=== PATIENT | female | born 1995 | race Caucasian/White ===

== ENCOUNTER 2017-06-10 12:19 | Emergency (ER) | payer OTHER ==
[2017-06-10] MEDS ORDERED: SODIUM CHLORIDE 0.9% 500 ML IV STA (12:55)
--- NOTE | 2017-06-10 13:02 | ED ---
General Adult HPI - General Chief complaint: Overdose Stated complaint: mental health Time Seen by Provider: 06/10/17 12:51 Source: patient, police, EMS, RN notes reviewed Mode of arrival: EMS Limitations: no limitations - History of Present Illness Initial comments: Patient is a pleasant 21-year-old female presenting to the emergency department with depression and overdose. Patient states prior to arrival she took exactly 18 simply sleep pills. Patient denies taking Tylenol. Patient denies taking any other medications. Patient admits to feeling depressed. No homicidal thoughts. Patient does have previous suicide attempt. No physical complaints. No hallucinations. Occasional alcohol use, none today. No street drug use. - Related Data Home Medications Medication Instructions Recorded Confirmed Ibuprofen [Motrin] 400 mg PO BID PRN 06/10/17 06/10/17 Allergies Allergy/AdvReac Type Severity Reaction Status Date / Time amoxicillin Allergy Rash/Hives Verified 06/10/17 13:29 Review of Systems ROS Statement: Those systems with pertinent positive or pertinent negative responses have been documented in the HPI. ROS Other: All systems not noted in ROS Statement are negative. Constitutional: Denies: fever Eyes: Denies: eye pain ENT: Denies: ear pain Respiratory: Denies: cough Cardiovascular: Denies: chest pain Endocrine: Denies: fatigue Gastrointestinal: Denies: abdominal pain Genitourinary: Denies: dysuria Musculoskeletal: Denies: back pain Skin: Denies: rash Neurological: Denies: weakness Psychiatric: Reports: depression Past Medical History Past Medical History: No Reported History History of Any Multi-Drug Resistant Organisms: None Reported Past Surgical History: Cholecystectomy Past Anesthesia/Blood Transfusion Reactions: No Reported Reaction Past Psychological History: No Psychological Hx Reported Smoking Status: Current every day smoker Past Alcohol Use History: Occasional Past Drug Use History: None Reported General Exam Limitations: no limitations General appearance: alert, in no apparent distress Head exam: Present: atraumatic Eye exam: Present: normal appearance, PERRL ENT exam: Present: normal oropharynx Neck exam: Present: normal inspection. Absent: meningismus Respiratory exam: Present: normal lung sounds bilaterally Cardiovascular Exam: Present: regular rate, normal rhythm GI/Abdominal exam: Present: soft. Absent: tenderness Extremities exam: Present: normal inspection Neurological exam: Present: alert Psychiatric exam: Present: flat affect Skin exam: Present: normal color Course Vital Signs 06/10/17 06/10/17 06/10/17 12:22 12:37 12:46 Temperature 100.2 F H Pulse Rate 115 H 112 H Pulse Rate [ 110 H Credit Collection Associate ] Respiratory 16 18 Rate Blood Pressure 135/85 O2 Sat by Pulse 99 100 Oximetry 06/10/17 06/10/17 06/10/17 13:22 14:21 15:30 Temperature 100.0 F H Pulse Rate 94 Pulse Rate [ Credit Collection Associate ] Respiratory 16 16 16 Rate Blood Pressure 112/67 O2 Sat by Pulse 98 Oximetry EKG Findings - EKG Comments: EKG Findings:: Normal sinus rhythm 99. [place] 138. QRS 82. QT 368. QTC 472. Normal axis. Normal QRS. Normal ST-T. Medical Decision Making - Medical Decision Making Patient was seen by mental health services who does recommend discharge and close follow-up. They have been in touch with mobile crisis who will follow up with patient today and tomorrow and every day until she has established with a therapist. Patient denies suicidal ideation at this time. Patient is comfortable with plan with discharge. Patient does contract for safety. Patient requests a note for work for [employer]. - Lab Data Result diagrams: 06/10/17 12:30 06/10/17 12:30 Lab Results 06/10/17 06/10/17 06/10/17 Range/Units 12:30 12:30 13:45 WBC 5.3 (3.8-10.6) k/uL RBC 4.18 (3.80-5.40) m/uL Hgb 13.1 (11.4-16.0) gm/dL Hct 39.7 (34.0-46.0) % MCV 94.9 (80.0-100.0) fL MCH 31.4 (25.0-35.0) pg MCHC 33.1 (31.0-37.0) g/dL RDW 13.7 (11.5-15.5) % Plt Count 230 (150-450) k/uL Neutrophils % 49 % Lymphocytes % 42 % Monocytes % 5 % Eosinophils % 2 % Basophils % 1 % Neutrophils # 2.6 (1.3-7.7) k/uL Lymphocytes # 2.2 (1.0-4.8) k/uL Monocytes # 0.2 (0-1.0) k/uL Eosinophils # 0.1 (0-0.7) k/uL Basophils # 0.0 (0-0.2) k/uL Sodium 146 H (137-145) mmol/L Potassium 3.9 (3.5-5.1) mmol/L Chloride 112 H (98-107) mmol/L Carbon Dioxide 20 L (22-30) mmol/L Anion Gap 14 mmol/L BUN 9 (7-17) mg/dL Creatinine 0.85 (0.52-1.04) mg/dL Est GFR (MDRD) Af Amer >60 (>60 ml/min/1.73 sqM) Est GFR (MDRD) Non-Af >60 (>60 ml/min/1.73 sqM) Glucose 69 L (74-99) mg/dL Calcium 9.3 (8.4-10.2) mg/dL Total Bilirubin 0.2 (0.2-1.3) mg/dL AST 24 (14-36) U/L ALT 27 (9-52) U/L Alkaline Phosphatase 50 (38-126) U/L Total Protein 7.5 (6.3-8.2) g/dL Albumin 4.7 (3.5-5.0) g/dL Urine Color Yellow Urine Appearance Clear (Clear) Urine pH 7.0 (5.0-8.0) Ur Specific [place] 1.023 (1.001-1.035) Urine Protein Trace H (Negative) Urine Glucose (UA) Negative (Negative) Urine Ketones Negative (Negative) Urine Blood Negative (Negative) Urine Nitrite Negative (Negative) Urine Bilirubin Negative (Negative) Urine Urobilinogen <2.0 (<2.0) mg/dL Ur Leukocyte Esterase Small H (Negative) Urine RBC 1 (0-5) /hpf Urine WBC 5 (0-5) /hpf Ur Squamous Epith Cells 1 (0-4) /hpf Urine Mucus Rare H (None) /hpf Urine HCG, Qual (Not Detectd) Salicylates <1.0 mg/dL Urine Opiates Screen Not Detected (NotDetected) Ur Oxycodone Screen Not Detected (NotDetected) Urine Methadone Screen Not Detected (NotDetected) Ur Propoxyphene Screen Not Detected (NotDetected) Acetaminophen <10.0 ug/mL Ur Barbiturates Screen Not Detected (NotDetected) U Tricyclic Antidepress Not Detected (NotDetected) Ur Phencyclidine Scrn Not Detected (NotDetected) Ur Amphetamines Screen Not Detected (NotDetected) U Methamphetamines Scrn Not Detected (NotDetected) U Benzodiazepines Scrn Not Detected (NotDetected) Urine Cocaine Screen Not Detected (NotDetected) U Marijuana (THC) Screen Not Detected (NotDetected) Serum Alcohol 82 mg/dL 06/10/17 Range/Units 13:45 WBC (3.8-10.6) k/uL RBC (3.80-5.40) m/uL Hgb (11.4-16.0) gm/dL Hct (34.0-46.0) % MCV (80.0-100.0) fL MCH (25.0-35.0) pg MCHC (31.0-37.0) g/dL RDW (11.5-15.5) % Plt Count (150-450) k/uL Neutrophils % % Lymphocytes % % Monocytes % % Eosinophils % % Basophils % % Neutrophils # (1.3-7.7) k/uL Lymphocytes # (1.0-4.8) k/uL Monocytes # (0-1.0) k/uL Eosinophils # (0-0.7) k/uL Basophils # (0-0.2) k/uL Sodium (137-145) mmol/L Potassium (3.5-5.1) mmol/L Chloride (98-107) mmol/L Carbon Dioxide (22-30) mmol/L Anion Gap mmol/L BUN (7-17) mg/dL Creatinine (0.52-1.04) mg/dL Est GFR (MDRD) Af Amer (>60 ml/min/1.73 sqM) Est GFR (MDRD) Non-Af (>60 ml/min/1.73 sqM) Glucose (74-99) mg/dL Calcium (8.4-10.2) mg/dL Total Bilirubin (0.2-1.3) mg/dL AST (14-36) U/L ALT (9-52) U/L Alkaline Phosphatase (38-126) U/L Total Protein (6.3-8.2) g/dL Albumin (3.5-5.0) g/dL Urine Color Urine Appearance (Clear) Urine pH (5.0-8.0) Ur Specific [place] (1.001-1.035) Urine Protein (Negative) Urine Glucose (UA) (Negative) Urine Ketones (Negative) Urine Blood (Negative) Urine Nitrite (Negative) Urine Bilirubin (Negative) Urine Urobilinogen (<2.0) mg/dL Ur Leukocyte Esterase (Negative) Urine RBC (0-5) /hpf Urine WBC (0-5) /hpf Ur Squamous Epith Cells (0-4) /hpf Urine Mucus (None) /hpf Urine HCG, Qual Not Detected (Not Detectd) Salicylates mg/dL Urine Opiates Screen (NotDetected) Ur Oxycodone Screen (NotDetected) Urine Methadone Screen (NotDetected) Ur Propoxyphene Screen (NotDetected) Acetaminophen ug/mL Ur Barbiturates Screen (NotDetected) U Tricyclic Antidepress (NotDetected) Ur Phencyclidine Scrn (NotDetected) Ur Amphetamines Screen (NotDetected) U Methamphetamines Scrn (NotDetected) U Benzodiazepines Scrn (NotDetected) Urine Cocaine Screen (NotDetected) U Marijuana (THC) Screen (NotDetected) Serum Alcohol mg/dL - Radiology Data Radiology results: image reviewed (Chest x-ray shows no acute process) Disposition Clinical Impression: Depression Disposition: HOME SELF-CARE Condition: Stable Instructions: Depression (ED) Additional Instructions: Please follow-up with your doctor in the next day or 2 for recheck. Please follow-up with her counselor and psychiatrist as directed. Return for thoughts of self-harm, worsening symptoms or other concerns. Referrals: Candy Brian MD [REFERRING] - 1-2 days Diandra Rodriguez MD [Medical Doctor] - 1-2 days Time of Disposition: 16:41
[2017-06-10 13:15] LABS: Basophils % (A) 1 %; CH 32.7; CHCM 34.7; Eosinophils # (A) 0.1 k/uL (0-0.7); Eosinophils % (A) 2 %; HCT 39.7 % (34.0-46.0); HDW 2.34; HGB 13.1 gm/dL (11.4-16.0); Luc # (Auto) 0.15; Luc % (Auto) 3; Lymphocytes # (A) 2.2 k/uL (1.0-4.8); Lymphocytes % (A) 42 %; MCH 31.4 pg (25.0-35.0); MCHC 33.1 g/dL (31.0-37.0); MCV 94.9 fL (80.0-100.0); Monocytes # (A) 0.2 k/uL (0-1.0); Monocytes % (A) 5 %; Neutrophils # (A) 2.6 k/uL (1.3-7.7); Neutrophils % (A) 49 %; RBC 4.18 m/uL (3.80-5.40); RDW 13.7 % (11.5-15.5); WBC 5.3 k/uL (3.8-10.6); WBC (Perox) 5.38
[2017-06-10 13:23] VITALS: RESP 16
[2017-06-10 13:23] LABS: ALT 27 U/L (9-52); AST 24 U/L (14-36); Alkaline Phosphatase 50 U/L (38-126); Anion Gap 14 mmol/L; Blood Urea Nitrogen 9 mg/dL (7-17); Calcium 9.3 mg/dL (8.4-10.2); Carbon Dioxide 20 mmol/L (22-30); Chloride 112 mmol/L (98-107); Glucose 69 mg/dL (74-99); Non-African American GFR(MDRD) >60 (>60 ml/min/1.73 sqM); Potassium 3.9 mmol/L (3.5-5.1); Sodium 146 mmol/L (137-145); Total Bilirubin 0.2 mg/dL (0.2-1.3); Total Protein 7.5 g/dL (6.3-8.2)
[2017-06-10 13:24] LABS: Acetaminophen <10.0 ug/mL; Salicylate <1.0 mg/dL
[2017-06-10 13:26] LABS: Alcohol 82 mg/dL
[2017-06-10 13:58] LABS: Appearance,Urine Clear (Clear); Bilirubin,Urine Negative (Negative); Glucose,Urine (UA) Negative (Negative); Ketones,Urine Negative (Negative); Leukocyte Esterase,Urine Small (Negative); Mucus,Urine Rare /hpf; Nitrite,Urine Negative (Negative); Particle Count 3543; Protein,Urine Trace (Negative); RBC,Urine 1 /hpf (0-5); Specific Gravity,Urine 1.023 (1.001-1.035); Squamous Epithelial Cell,Urine 1 /hpf (0-4); UA Billing (MACRO vs. MICRO) MICRO; Urobilinogen,Urine <2.0 mg/dL (<2.0); WBC,Urine 5 /hpf (0-5)
--- NOTE | 2017-06-10 14:07 | XR ---
EXAMINATION TYPE: XR chest 1V portable DATE OF EXAM: 06/10/2017 Comparison: None Clinical History: 21-year-old female depression and overdose Findings: The cardiomediastinal silhouette, aorta, and pulmonary vasculature are within normal limits. Lungs and pleural spaces are clear. Impression: No acute cardiopulmonary process.
[2017-06-10 14:23] VITALS: TEMP 100
[2017-06-10 17:15] VITALS: BP 133/85; PULSE 92
== END 2017-06-10 17:40 | disposition home or self-care (01) ==
LOC: EC 12:19
DX: F32.9 Major depressive disorder, single episode, unspecified (principal); F17.200 Nicotine dependence, unspecified, uncomplicated; Z88.0 Allergy status to penicillin
CPT/HCPCS: 36415; 71010; 80053; 80306; 80320; 81001; 81025; 83520; 85025; 93005; 96360; 96361; 99285

== ENCOUNTER 2023-05-30 03:32 | Inpatient (IN) | payer MEDICAID, OTHER ==
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
[2023-05-30] MEDS ORDERED: ACETAMINOPHEN TAB 325 MG TAB PO STA (11:37)
[2023-05-30 14:04] LABS: Amphetamine Screen,Urine Not Detected (NotDetected); Barbiturate Screen,Urine Not Detected (NotDetected); Benzodiazepines Screen,Urine Not Detected (NotDetected); Cocaine Screen,Urine Not Detected (NotDetected); Methadone Screen, Urine Not Detected (NotDetected); Opiate Screen,Urine Not Detected (NotDetected); Oxycodone Screen, Urine Not Detected (NotDetected); Phencyclidine Screen,Urine Not Detected (NotDetected); Tricyclic Antidepressant,Urine Not Detected (NotDetected); Urn Cannabinoid Scrn Not Detected (NotDetected)
[2023-05-30] MEDS ORDERED: NICOTINE 7MG/24HR PATCH TRANSDERM STA (15:25)
[2023-05-30] MEDS ORDERED: MAGNESIUM HYDROXIDE 2,400 MG/30 ML CUP PO PRN (17:12)
[2023-05-30] MEDS ORDERED: MAG HYDROX/AL HYDROX/SIMETH 30 ML CUP PO PRN (17:12)
[2023-05-30] MEDS ORDERED: ACETAMINOPHEN TAB 325 MG TAB PO PRN (17:12)
[2023-05-30] MEDS ORDERED: haloperidoL 5 MG TAB PO PRN (17:15)
[2023-05-30] MEDS ORDERED: LORazepam 1 MG TAB PO PRN (17:15)
[2023-05-30] MEDS ORDERED: LORazepam 2 MG/ML INJ IM PRN (17:15)
[2023-05-30] MEDS ORDERED: HALOPERIDOL LACTATE 5 MG/ML 1 ML VIAL IM PRN (17:15)
[2023-05-31] MEDS: NICOTINE 7MG/24HR PATCH TRANSDERM SCH (08:40)
[2023-05-31 12:05] LABS: Basophils % (A) 0 %; Eosinophils # (A) 0.2 k/uL (0-0.7); Eosinophils % (A) 2 %; Lymphocytes # (A) 1.7 k/uL (1.0-4.8); Lymphocytes % (A) 18 %; MCH 31.5 pg (25.0-35.0); MCHC 32.5 g/dL (31.0-37.0); Mean Platelet Volume 8.3; Monocytes # (A) 0.4 k/uL (0-1.0); Monocytes % (A) 4 %; Neutrophils # (A) 6.7 k/uL (1.3-7.7); Neutrophils % (A) 74 %; Platelet Count 284 k/uL (150-450); RBC 4.12 m/uL (3.80-5.40); RDW 13.7 % (11.5-15.5); WBC 9.1 k/uL (3.8-10.6)
[2023-05-31 12:22] LABS: ALT 16 U/L (4-34); AST 24 U/L (14-36); African American GFR (CKD) >90 (>60 ml/min/1.73 sqM); Albumin 4.8 g/dL (3.5-5.0); Alkaline Phosphatase 69 U/L (38-126); Anion Gap 11 mmol/L; Blood Urea Nitrogen 6 mg/dL (7-17); Calcium 9.8 mg/dL (8.4-10.2); Carbon Dioxide 19 mmol/L (22-30); Chloride 108 mmol/L (98-107); Glucose 80 mg/dL (74-99); Non-African American GFR(CKD) >90 (>60 ml/min/1.73 sqM); Potassium 4.3 mmol/L (3.5-5.1); Sodium 138 mmol/L (137-145); Total Bilirubin 0.7 mg/dL (0.2-1.3); Total Protein 7.7 g/dL (6.3-8.2)
[2023-05-31] MEDS ORDERED: hydrOXYzine pamoate 25 MG CAP PO PRN (13:57)
[2023-05-31] MEDS ORDERED: NICOTINE GUM (POLACRILEX) 2 MG GUM BUCCAL PRN (13:59)
[2023-05-31] MEDS: SERTRALINE 25 MG TAB PO SCH (14:04)
--- NOTE | 2023-05-31 15:01 | P.HP ---
Psychiatric H&P - . H&P Date: 05/31/23 History & Physical: Allergies Allergy/AdvReac Type Severity Reaction Status Date / Time amoxicillin Allergy Rash/Hives Verified 05/30/23 17:02 Vital Signs Temp 98.4 F 05/30/23 21:26 Pulse 70 05/30/23 21:26 Resp 17 05/30/23 21:26 BP 137/74 05/30/23 21:26 Pulse Ox 98 05/30/23 21:26 FiO2 Intake & Output 05/30/23 05/31/23 05/31/23 18:59 06:59 18:59 Weight 55.055 kg Laboratory Last Values WBC 9.1 k/uL (3.8-10.6) 05/31/23 11:35 RBC 4.12 m/uL (3.80-5.40) 05/31/23 11:35 Hgb 13.0 gm/dL (11.4-16.0) 05/31/23 11:35 Hct 40.0 % (34.0-46.0) 05/31/23 11:35 MCV 97.0 fL (80.0-100.0) 05/31/23 11:35 MCH 31.5 pg (25.0-35.0) 05/31/23 11:35 MCHC 32.5 g/dL (31.0-37.0) 05/31/23 11:35 RDW 13.7 % (11.5-15.5) 05/31/23 11:35 Plt Count 284 k/uL (150-450) 05/31/23 11:35 MPV 8.3 05/31/23 11:35 Neutrophils % 74 % 05/31/23 11:35 Lymphocytes % 18 % 05/31/23 11:35 Monocytes % 4 % 05/31/23 11:35 Eosinophils % 2 % 05/31/23 11:35 Basophils % 0 % 05/31/23 11:35 Neutrophils # 6.7 k/uL (1.3-7.7) 05/31/23 11:35 Lymphocytes # 1.7 k/uL (1.0-4.8) 05/31/23 11:35 Monocytes # 0.4 k/uL (0-1.0) 05/31/23 11:35 Eosinophils # 0.2 k/uL (0-0.7) 05/31/23 11:35 Basophils # 0.0 k/uL (0-0.2) 05/31/23 11:35 Sodium 138 mmol/L (137-145) 05/31/23 11:35 Potassium 4.3 mmol/L (3.5-5.1) 05/31/23 11:35 Chloride 108 mmol/L (98-107) H 05/31/23 11:35 Carbon Dioxide 19 mmol/L (22-30) L 05/31/23 11:35 Anion Gap 11 mmol/L 05/31/23 11:35 BUN 6 mg/dL (7-17) L 05/31/23 11:35 Creatinine 0.82 mg/dL (0.52-1.04) 05/31/23 11:35 Est GFR (CKD-EPI)AfAm >90 (>60 ml/min/1.73 sqM) 05/31/23 11:35 Est GFR (CKD-EPI)NonAf >90 (>60 ml/min/1.73 sqM) 05/31/23 11:35 Glucose 80 mg/dL (74-99) 05/31/23 11:35 Calcium 9.8 mg/dL (8.4-10.2) 05/31/23 11:35 Total Bilirubin 0.7 mg/dL (0.2-1.3) 05/31/23 11:35 AST 24 U/L (14-36) 05/31/23 11:35 ALT 16 U/L (4-34) 05/31/23 11:35 Alkaline Phosphatase 69 U/L (38-126) 05/31/23 11:35 Total Protein 7.7 g/dL (6.3-8.2) 05/31/23 11:35 Albumin 4.8 g/dL (3.5-5.0) 05/31/23 11:35 TSH 0.594 mIU/L (0.465-4.680) 05/31/23 11:35 Urine Opiates Screen Not Detected (NotDetected) 05/30/23 04:45 Ur Oxycodone Screen Not Detected (NotDetected) 05/30/23 04:45 Urine Methadone Screen Not Detected (NotDetected) 05/30/23 04:45 Ur Propoxyphene Screen Not Detected (NotDetected) 05/30/23 04:45 Ur Barbiturates Screen Not Detected (NotDetected) 05/30/23 04:45 U Tricyclic Antidepress Not Detected (NotDetected) 05/30/23 04:45 Ur Phencyclidine Scrn Not Detected (NotDetected) 05/30/23 04:45 Ur Amphetamines Screen Not Detected (NotDetected) 05/30/23 04:45 U Methamphetamines Scrn Not Detected (NotDetected) 05/30/23 04:45 U Benzodiazepines Scrn Not Detected (NotDetected) 05/30/23 04:45 Urine Cocaine Screen Not Detected (NotDetected) 05/30/23 04:45 U Marijuana (THC) Screen Not Detected (NotDetected) 05/30/23 04:45 Coronavirus (PCR) Not Detected (Not Detectd) 05/30/23 14:55 05/31/23 14:54 IDENTIFYING DATA: Patient is a 27-year-old female, currently homeless however staying with friends and family, has 2 kids, 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 HPI: Patient presented to the hospital for psychiatric evaluation. Apparently patient was feeling depressed, overwhelmed and having suicidal thoughts with a plan to jump into water. Patient was negative for substances in her urine drug screen. She was agreeable to speak to adjusto writer operator today. Patient signed voluntary on the mental health unit. Patient states that she has been having several stressors lately, feeling hopeless and overwhelmed. She states that "a lot of negative things are packing up". She claims that she was recently in in a brew soup relationship that she left and wanted to get away from. She claims that it was very difficult for her to get out of. She also claims that she was recently with this man's CV however had an one week ago. Claims that she lost her house due to this relationship. She states that she is recently homeless since January and has been finding it difficult and staying with friends and family on occasion. She states that she was having suicidal thoughts and went to the river and thought about jumping in however came to the hospital instead. States that she was having depression bouts of anxiety as well. States that her sleep and appetite are poor. Patient denies any current suicidal or homicidal ideations intent or plan. At this time patient denies any auditory or visual hallucinations. Patient denies any flight of ideas racing thoughts and increased in goal directed behavior. Patient admits to using cigarettes daily, alcohol occasionally, denying any other recreational drug use. PAST PSYCHIATRIC HISTORY: Patient states that she has no previous history of mental illness. Patient denies being on any psychiatric medications. Patient denies any previous psychiatric hospitalizations. Patient denies any psychiatric outpatient follow-up. Patient denies any history of suicide attempts in the past. PMH: As per ER note ALLERGIES: as per EMR CHEMICAL DEPENDENCY HISTORY: as per HPI FAMILY PSYCHIATRIC/SUBSTANCE USE HISTORY: She states that her father had some form of mental illness SOCIAL HISTORY: Patient was born and raised in the [facility]. She claims that she completed her GED for schooling. 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 She is currently homeless living with different friends and family at times, but she has 2 kids. She states that she is does not have any legal history. MENTAL STATUS EXAM: General Appearance: Patient appears to be thin, disheveled hair, stated age is alert, directable, and attempts to cooperate. Patient appears to have poor hygiene and grooming. Behavior: Patient is seated without any agitated behavior. Attempts to cooperate Speech: Patient's speech is fluent and nonpressured. Mood/Affect: Patient reports their mood is depressed and anxious, affect is congruent and constricted. Suicidality/Homicidality: Patient denies having any homicidal ideation intent or plan. Denies any suicidal ideations intent or plan Perceptions: Patient denies any visual hallucinations and denies any auditory hallucinations Though content/process: There is no evidence of any delusional thought content and thought process is linear and goal-directed. Focused on her stressors Memory and concentration: AOX3, grossly intact for the purposes of this session. Can spell "WORLD" backwards Judgment and insight: fair STRENGTHS/WEAKNESSES: strength is that patient is resilient. Weakness is that patient has poor judgment and is impulsive INTELLECT: average IMPRESSIONS: Major depressive disorder without psychotic features anxiety disorder NOS nicotine dependence homelessness PLAN: -Patient is admitted under voluntary status to MHU for stabilization of psychiatric symptoms and safety. Patient has signed adult voluntary form and medication consent and is placed in patient's chart. -Medications : Zoloft 25 mg daily for mood/anxiety, trazodone 25 mg daily at bedtime for insomnia/mood. -Ativan and Haldol PRN for agitation/aggression -Patient was informed of the risks, benefits and side effects of the medication and patient verbally consented to taking the medications. Patient signed med consent form and was placed in chart. -Internal Medicine consult to perform medical evaluation and physical. -NRT - nicotine patch and nicotine gum -SW on board for discharge planning. Encourage patient to participate in groups to work on coping skills.
[2023-05-31] MEDS: traZODone HCL 50 MG TAB PO SCH (21:37)
[2023-05-31 23:16] LABS: Appearance,Urine Clear (Clear); Bilirubin,Urine Negative (Negative); Blood,Urine Small (Negative); Color,Urine Light Yellow; Glucose,Urine (UA) Negative (Negative); Ketones,Urine Trace (Negative); Leukocyte Esterase,Urine Negative (Negative); Mucus,Urine Few /hpf; Nitrite,Urine Negative (Negative); Protein,Urine Negative (Negative); RBC,Urine <1 /hpf (0-5); Urobilinogen,Urine <2.0 mg/dL (<2.0); WBC,Urine 1 /hpf (0-5)
[2023-06-01] MEDS: SERTRALINE 25 MG TAB PO SCH (08:36)
[2023-06-01] MEDS: NICOTINE 7MG/24HR PATCH TRANSDERM SCH (08:36)
--- NOTE | 2023-06-01 10:25 | P.PN ---
Progress Note - Text Progress Note Date: 06/01/23 Interval history: [facility] to other patients. Patient was agreea ble to expert medical writer today in the office. Patient states that she is doing a bit better in terms of her mood and anxiety. Claims that talking to other people on the unit has been helpful for her and going to groups. She states that yesterday she did get a concerning phone call from her mother and states that "usually I would've freaked out on her" however was able to be redirected. She claims that she is tolerating the medications well at this time and is agreeable to have an increase in her Zoloft. States that she slept moderately well throughout the night last night and wants to stay on the same dose of trazodone at this time. Claims that her appetite is mildly improving since yesterday. She is denying any auditory or visual hallucinations, denying any suicidal or homicidal ideations intent or plan. Mental status examination: General Appearance: Patient appears to be thin, disheveled hair, stated age is alert, directable, and attempts to cooperate. Patient appears to have improving hygiene and grooming. Behavior: Patient is seated without any agitated behavior. Attempts to cooperate, improving Speech: Patient's speech is fluent and nonpressured. Mood/Affect: Patient reports their mood is improving mildly, affect is congruent and constricted. Suicidality/Homicidality: Patient denies having any homicidal ideation intent or plan. Denies any suicidal ideations intent or plan Perceptions: Patient denies any visual hallucinations and denies any auditory hallucinations Though content/process: There is no evidence of any delusional thought content and thought process is linear and goal-directed. Memory and concentration: AOX3, grossly intact for the purposes of this session Judgment and insight: fair IMPRESSIONS: Major depressive disorder without psychotic features anxiety disorder NOS nicotine dependence homelessness PLAN: -Patient is admitted under voluntary status to MHU for stabilization of psychiatric symptoms and safety. Patient has signed adult voluntary form and medication consent and is placed in patient's chart. -Medications : increase Zoloft 50 mg daily for mood/anxiety, trazodone 25 mg daily at bedtime for insomnia/mood. -Ativan and Haldol PRN for agitation/aggression -NRT - nicotine patch and nicotine gum -SW on board for discharge planning. Encourage patient to participate in groups to work on coping skills.
[2023-06-01] MEDS: traZODone HCL 50 MG TAB PO SCH (22:24)
--- NOTE | 2023-06-02 04:28 | P.MDCNMH ---
History of Present Illness H&P Date: 06/01/23 Chief Complaint: medical evaluation 27 year old female with no significant past medical history she felt suicidal and depressed due to life stressors, she is homeless, and lost custody over her children , she is staying with friends, who were taunting her about her life. and felt very down. and started walking to the bridge to jump into the river. but then stopped her self and called EMS The patient currently denies any medical concerns , denies any fever, chills, c ough, sore throat, chest pain , trouble breathing , nausea , vomiting, abd pain , changes in urinary or bowel habits. Patient denies any tobacco smoking and illicit drugs or alcohol review of systems Pertinent positives as noted in HPI. All other systems were reviewed and are negative on exam Constitutional: No acute distress Eyes: Anicteric sclerae, moist conjunctiva, Pupils equal round reactive to light Lungs: Clear to auscultation Clear to percussion Normal respiratory effort, no accessory muscle use Cardiovascular: Heart regular in rate and rhythm, No murmurs, gallops, or rubs No peripheral edema Abdominal: Soft Nontender, no guarding, rebound or rigidity Abdomen moving with respiration Normoactive bowel sounds Extremities: No clubbing Pedal pulses intact and symmetrical Radial pulses intact and symmetrical No calf tenderness Psychiatric: Alert and oriented to person, place and time Neuro Muscles Strength 5/5 in all 4 extremities Sensation to light touch grossly present throughout Past Medical History Past Medical History: No Reported History Additional Past Medical History / Comment(s): oral pill induced 05/2023 History of Any Multi-Drug Resistant Organisms: None Reported Past Surgical History: Cholecystectomy Past Anesthesia/Blood Transfusion Reactions: No Reported Reaction Past Psychological History: No Psychological Hx Reported Smoking Status: Current every day smoker Past Alcohol Use History: Occasional Past Drug Use History: None Reported Medications and Allergies Home Medications Medication Instructions Recorded Confirmed Type No Known Home Medications 05/30/23 05/30/23 History Allergies Allergy/AdvReac Type Severity Reaction Status Date / Time amoxicillin Allergy Rash/Hives Verified 05/30/23 17:02 Physical Exam Vitals: Vital Signs Temp Pulse Resp BP Pulse Ox 06/01/23 17:41 98.5 F 60 15 120/56 98 Intake and Output 06/01/23 06/01/23 06/02/23 14:59 22:59 06:59 Other: Weight 55.055 kg Cranial Nerve Examination - Cranial Nerves Cranial Nerve II- Optic: Intact Cranial Nerve III- Oculomotor: Intact Cranial Nerve IV- Trochlear: Intact Cranial Nerve V- Trigeminal: Intact Cranial Nerve - Abducens: Intact Cranial Nerve VII- Facial: Intact Cranial Nerve VIII- Auditory: Intact Cranial Nerve IX- Glossopharyngeal: Intact Cranial Nerve X- Vagus: Intact Cranial Nerve XI- Accessory: Intact Cranial Nerve XII- Hypoglossal: Intact Results CBC & Chem 7: 05/31/23 11:35 05/31/23 11:35 Assessment and Plan Assessment: depression and suicidal ideation management per psych blood work unremarkable urine drug screen negative Hgb 13, WBC 9 BUN 138, K 4.3 BUN 6 cr 0.8 stable from medical stand point thank you for this consultation
[2023-06-02 07:00] VITALS: RESP 16; TEMP 97.9
[2023-06-02] MEDS: NICOTINE 7MG/24HR PATCH TRANSDERM SCH (08:37)
[2023-06-02] MEDS: SERTRALINE 50 MG TAB PO SCH (08:37)
--- NOTE | 2023-06-02 10:30 | P.PN ---
Progress Note - Text Progress Note Date: 06/02/23 Interval history: Patient was seen today wandering the hallways and was agreeable to speak to wr iter in the office. Patient states that she is doing a bit better today in terms of her mood and anxiety. She did state that she is having very fine tremors at times this morning and believes it may be from medications. We spoke about potential side effects and the adjustment of serotonin and patient asked questions. We agreed to continue monitoring. She states that she was able to sleep a bit better last night with the half dose of trazodone. States that she has been going to groups and participating best she can. Claims that her appetite is mildly improving. Claims that her appetite is mildly improving since yesterday. She is denying any auditory or visual hallucinations, denying any suicidal or homicidal ideations intent or plan. Mental status examination: General Appearance: Patient appears to be thin, disheveled hair, stated age is alert, directable, and attempts to cooperate. Patient appears to have improving hygiene and grooming. Behavior: Patient is seated without any agitated behavior. more cooperative. Speech: Patient's speech is fluent and nonpressured. Mood/Affect: Patient reports their mood is improving mildly, affect is congruent Suicidality/Homicidality: Patient denies having any homicidal ideation intent or plan. Denies any suicidal ideations intent or plan Perceptions: Patient denies any visual hallucinations and denies any auditory hallucinations Though content/process: There is no evidence of any delusional thought content and thought process is linear and goal-directed. Memory and concentration: AOX3, grossly intact for the purposes of this session Judgment and insight: fair IMPRESSIONS: Major depressive disorder without psychotic features anxiety disorder NOS nicotine dependence homelessness PLAN: -Patient is admitted under voluntary status to MHU for stabilization of psychiatric symptoms and safety. Patient has signed adult voluntary form and medication consent and is placed in patient's chart. -Medications : continue Zoloft 50 mg daily for mood/anxiety, trazodone 25 mg daily at bedtime for insomnia/mood. -Ativan and Haldol PRN for agitation/aggression -NRT - nicotine patch and nicotine gum -SW on board for discharge planning. Encourage patient to participate in groups to work on coping skills. likely discharge tomorrow if patient is doing better.
[2023-06-02] MEDS: traZODone HCL 50 MG TAB PO SCH (22:25)
[2023-06-03] MEDS: NICOTINE 7MG/24HR PATCH TRANSDERM SCH (08:49)
[2023-06-03] MEDS: SERTRALINE 50 MG TAB PO SCH (08:49)
--- NOTE | 2023-06-03 10:08 | P.DS ---
Providers Date of admission: 05/30/23 17:10 Expected date of discharge: 06/03/23 Attending physician: Moncho Adams MD Consults: 05/30/23 17:12 Consult Physician Routine Consulting Provider: Jimena Physician Consult Reason/Comments: H&P Do you want consulting provider notified?: Yes Primary care physician: Stated None - Discharge Diagnosis(es) (1) Major depressive disorder without psychotic features Current Visit: Yes Status: Acute Priority: High (2) Anxiety disorder Current Visit: Yes Status: Acute Priority: High (3) Nicotine dependence Current Visit: Yes Status: Acute Priority: Low (4) Homelessness Current Visit: Yes Status: Acute Priority: Medium Hospital Course: Admission HPI: Admission note was completed by copywriter "Patient is a 27-year-old female, currently homeless however staying with friends and family, has 2 kids, 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 Patient presented to the hospital for psychiatric evaluation. Apparently patient was feeling depressed, overwhelmed and having suicidal thoughts with a plan to jump into water. Patient was negative for substances in her urine drug screen. She was agreeable to speak to copywriter today. Patient signed voluntary on the mental health unit. Patient states that she has been having several stressors lately, feeling hopeless and overwhelmed. She states that "a lot of negative things are packing up". She claims that she was recently in in a brew soup relationship that she left and wanted to get away from. She claims that it was very difficult for her to get out of. She also claims that she was recently with this man's CV however had an one week ago. Claims that she lost her house due to this relationship. She states that she is recently homeless since January and has been finding it difficult and staying with friends and family on occasion. She states that she was having suicidal thoughts and went to the river and thought about jumping in however came to the hospital instead. States that she was having depression bouts of anxiety as well. States that her sleep and appetite are poor. Patient denies any current suicidal or homicidal ideations intent or plan. At this time patient denies any auditory or visual hallucinations. Patient denies any flight of ideas racing thoughts and increased in goal directed behavior. Patient admits to using cigarettes daily, alcohol occasionally, denying any other recreational drug use." Hospital course: Upon admission to the unit patient was directable and agreeable to commence treatment and signed adult voluntary form . Patient got along well with other patients on the unit and followed unit protocol. Patient was compliant with the medications and denied any side effects throughout hospital course. Patient was started on Zoloft increased to a dose of 50 mg daily for mood/anxiety, trazodone 25-50 mg daily at bedtime for insomnia/mood, Vistaril when necessary for anxiety. Patient spoke of her stressors and engaged in therapy both group and individual. Patient was also seen by medical team for history and physical exam. patient had a quantative HCG completed on 06/02 which was 36 and will be drawn today on day of discharge to ensure that it is decreasing after she had an . Throughout the course of the hospitalization patient gradually improved with regards to mood, anxiety, suicidal thoughts, sleep and became more future oriented with improved insight and judgment. On the day of discharge patient denied any suicidal or homicidal ideations intent or plan denied any auditory or visual hallucinations. Patient endorsed wanting to live for her health and her kids. The patient denied any access to guns or weapons. Patient denied any paranoia and did not endorse any delusions. Patient does not have a significant history of substance abuse and was counseled on abstaining from all substances including alcohol and marijuana. Patient was also counseled on the medications and need for regular compliance and was encouraged to follow-up with their outpatient appointment for mental health and also for primary care. Prior to discharge a family meeting will be arranged by social media marketing analyst to answer any questions and ensure safety upon discharge. Mental status exam: General Appearance: Patient appears to be thin, stated age is alert, pleasant, and cooperative. Patient is in no acute distress and has improved hygiene and grooming Behavior: Patient is calmly seated without any agitated behavior. Speech: Patient's speech is fluent and nonpressured. Mood/Affect: Patient reports their mood is "better", affect is congruent and euthymic. Suicidality/Homicidality: Patient denies having any suicidal or homicidal ideation intent or plan. Perceptions: Patient denies any auditory or visual hallucinations. Though content/process: There is no evidence of any delusional thought content and thought process is linear and goal-directed. more future oriented Memory and concentration: AOX3, grossly intact for the purposes of this session. Can spell "WORLD" backwards correctly. Judgment and insight: improved with guarded prognosis Impression: Major depressive disorder without psychotic features Anxiety disorder unspecified Homelessness Nicotine dependence Plan: -Continue with discharge today as patient has improved and stabilized psychiatrically and is not currently an imminent threat to herself and/or others. Patient will remain at chronically elevated risk for harm to self and/or others due to her impulsivity. -Continue medications: Zoloft 50 mg daily for mood/anxiety, trazodone 25-50 mg daily at bedtime when necessary for insomnia. Vistaril 25 mg daily when necessary for anxiety. -Patient was counseled on the need for medication compliance and appropriate follow-up at mental health and also primary care for medical issues. Patient verbalized understanding and agreed. -Social work to arrange for and conduct family meeting to ensure safety upon discharge and answer any questions/concerns. Social work also to arrange for patients follow up appointments with [facility] for psychiatric care along with follow up with primary care provider. -Patient counseled on abstaining from recreational drugs and marijuana and alcohol. Was informed/educated on the adverse effects on their physical and mental health. Patient verbally agreed and understood. -Patient was instructed to return to the hospital or seek immediate medical care if their psychiatric or medical symptoms do worsen or reoccur. Allergies Allergy/AdvReac Type Severity Reaction Status Date / Time amoxicillin Allergy Rash/Hives Verified 05/30/23 17:02 Laboratory Results WBC 9.1 k/uL (3.8-10.6) 05/31/23 11:35 RBC 4.12 m/uL (3.80-5.40) 05/31/23 11:35 Hgb 13.0 gm/dL (11.4-16.0) 05/31/23 11:35 Hct 40.0 % (34.0-46.0) 05/31/23 11:35 MCV 97.0 fL (80.0-100.0) 05/31/23 11:35 MCH 31.5 pg (25.0-35.0) 05/31/23 11:35 MCHC 32.5 g/dL (31.0-37.0) 05/31/23 11:35 RDW 13.7 % (11.5-15.5) 05/31/23 11:35 Plt Count 284 k/uL (150-450) 05/31/23 11:35 MPV 8.3 05/31/23 11:35 Neutrophils % 74 % 05/31/23 11:35 Lymphocytes % 18 % 05/31/23 11:35 Monocytes % 4 % 05/31/23 11:35 Eosinophils % 2 % 05/31/23 11:35 Basophils % 0 % 05/31/23 11:35 Neutrophils # 6.7 k/uL (1.3-7.7) 05/31/23 11:35 Lymphocytes # 1.7 k/uL (1.0-4.8) 05/31/23 11:35 Monocytes # 0.4 k/uL (0-1.0) 05/31/23 11:35 Eosinophils # 0.2 k/uL (0-0.7) 05/31/23 11:35 Basophils # 0.0 k/uL (0-0.2) 05/31/23 11:35 Sodium 138 mmol/L (137-145) 05/31/23 11:35 Potassium 4.3 mmol/L (3.5-5.1) 05/31/23 11:35 Chloride 108 mmol/L (98-107) H 05/31/23 11:35 Carbon Dioxide 19 mmol/L (22-30) L 05/31/23 11:35 Anion Gap 11 mmol/L 05/31/23 11:35 BUN 6 mg/dL (7-17) L 05/31/23 11:35 Creatinine 0.82 mg/dL (0.52-1.04) 05/31/23 11:35 Est GFR (CKD-EPI)AfAm >90 (>60 ml/min/1.73 sqM) 05/31/23 11:35 Est GFR (CKD-EPI)NonAf >90 (>60 ml/min/1.73 sqM) 05/31/23 11:35 Glucose 80 mg/dL (74-99) 05/31/23 11:[address] Glu mg/dL 103 mg/dL 05/31/23 11:35 Hemoglobin A1c 5.2 % (<=6.0) 05/31/23 11:35 Calcium 9.8 mg/dL (8.4-10.2) 05/31/23 11:35 Total Bilirubin 0.7 mg/dL (0.2-1.3) 05/31/23 11:35 AST 24 U/L (14-36) 05/31/23 11:35 ALT 16 U/L (4-34) 05/31/23 11:35 Alkaline Phosphatase 69 U/L (38-126) 05/31/23 11:35 Total Protein 7.7 g/dL (6.3-8.2) 05/31/23 11:35 Albumin 4.8 g/dL (3.5-5.0) 05/31/23 11:35 TSH 0.594 mIU/L (0.465-4.680) 05/31/23 11:35 HCG, Quant 32.9 mIU/mL 06/02/23 17:58 Urine Color Light Yellow 05/30/23 17:12 Urine Appearance Clear (Clear) 05/30/23 17:12 Urine pH 6.0 (5.0-8.0) 05/30/23 17:12 Ur Specific [place] 1.010 (1.001-1.035) 05/30/23 17:12 Urine Protein Negative (Negative) 05/30/23 17:12 Urine Glucose (UA) Negative (Negative) 05/30/23 17:12 Urine Ketones Trace (Negative) H 05/30/23 17:12 Urine Blood Small (Negative) H 05/30/23 17:12 Urine Nitrite Negative (Negative) 05/30/23 17:12 Urine Bilirubin Negative (Negative) 05/30/23 17:12 Urine Urobilinogen <2.0 mg/dL (<2.0) 05/30/23 17:12 Ur Leukocyte Esterase Negative (Negative) 05/30/23 17:12 Urine RBC <1 /hpf (0-5) 05/30/23 17:12 Urine WBC 1 /hpf (0-5) 05/30/23 17:12 Urine Mucus Few /hpf (None) H 05/30/23 17:12 Urine HCG, Qual Detected (Not Detectd) 05/30/23 17:12 Urine Opiates Screen Not Detected (NotDetected) 05/30/23 04:45 Ur Oxycodone Screen Not Detected (NotDetected) 05/30/23 04:45 Urine Methadone Screen Not Detected (NotDetected) 05/30/23 04:45 Ur Propoxyphene Screen Not Detected (NotDetected) 05/30/23 04:45 Ur Barbiturates Screen Not Detected (NotDetected) 05/30/23 04:45 U Tricyclic Antidepress Not Detected (NotDetected) 05/30/23 04:45 Ur Phencyclidine Scrn Not Detected (NotDetected) 05/30/23 04:45 Ur Amphetamines Screen Not Detected (NotDetected) 05/30/23 04:45 U Methamphetamines Scrn Not Detected (NotDetected) 05/30/23 04:45 U Benzodiazepines Scrn Not Detected (NotDetected) 05/30/23 04:45 Urine Cocaine Screen Not Detected (NotDetected) 05/30/23 04:45 U Marijuana (THC) Screen Not Detected (NotDetected) 05/30/23 04:45 Coronavirus (PCR) Not Detected (Not Detectd) 05/30/23 14:55 Vital Signs Temp 97.9 F 06/02/23 06:45 Pulse 57 L 06/02/23 06:45 Resp 16 06/02/23 06:45 BP 109/70 06/02/23 06:45 Pulse Ox 99 06/02/23 06:45 FiO2 Patient Condition at Discharge: Stable Plan - Discharge Summary Discharge Rx Participant: Yes New Discharge Prescriptions: New RX: traZODone HCL [Desyrel] 25 - 50 mg PO HS PRN 30 Days #30 tab PRN Reason: Insomnia RX: Nicotine 7Mg/24Hr Patch [Habitrol] 1 patch TRANSDERM DAILY 14 Days #14 patch RX: Nicotine Gum (Polacrilex) [Nicorette] 2 mg BUCCAL Q4HR PRN 30 Days #180 pieceofgum PRN Reason: Nicotine Cravings RX: hydrOXYzine pamoate [Vistaril] 25 mg PO DAILY PRN 14 Days #14 cap PRN Reason: Anxiety RX: Sertraline [Zoloft] 50 mg PO DAILY 30 Days #30 tab Discharge Medication List RX: Nicotine 7Mg/24Hr Patch [Habitrol] 1 patch TRANSDERM DAILY 14 Days #14 patch 06/03/23 [Rx] RX: Nicotine Gum (Polacrilex) [Nicorette] 2 mg BUCCAL Q4HR PRN 30 Days #180 pieceofgum 06/03/23 [Rx] RX: Sertraline [Zoloft] 50 mg PO DAILY 30 Days #30 tab 06/03/23 [Rx] RX: hydrOXYzine pamoate [Vistaril] 25 mg PO DAILY PRN 14 Days #14 cap 06/03/23 [Rx] RX: traZODone HCL [Desyrel] 25 - 50 mg PO HS PRN 30 Days #30 tab 06/03/23 [Rx] Follow up Appointment(s)/Referral(s): [facility] [Outside] - 06/08/23 2:00 pm (with intake) [facility] [NON-STAFF] - 1 Week (follow up for quantitative HCG.) Activity/Diet/Wound Care/Special Instructions: Avoid the use of street drugs and alcohol. Take all medications as prescribed. When you are in need of refills on your medications, please contact your medical provider and/or outpatient psychiatrist/provider to have this done. Please go to your scheduled outpatient appointment for aftercare treatment. If symptoms return or become worse, call the crisis line at and/or go to the nearest emergency room for evaluation. National Suicide Hotline 047. Discharge/Stand Alone Forms: AA Meetings [facility] Discharge Disposition: HOME SELF-CARE
[2023-06-03 15:55] VITALS: BP 108/59; PULSE 67
== END 2023-06-03 13:03 | disposition home or self-care (01) | DRG 754 ==
LOC: EC 03:32 → 3MHU 17:10
PROVIDERS: ADMIT Psychiatry & Neurology Psychiatry; ATTEND Psychiatry & Neurology Psychiatry
DX: F32.9 Major depressive disorder, single episode, unspecified (principal); F17.210 Nicotine dependence, cigarettes, uncomplicated; G47.00 Insomnia, unspecified; R45.851 Suicidal ideations; Z59.01 Sheltered homelessness; Z79.899 Other long term (current) drug therapy; Z91.410 Personal history of adult physical and sexual abuse; Z20.822 Contact with and (suspected) exposure to COVID-19
CPT/HCPCS: 80053; 80306; 81001; 81025; 83036; 84443; 84702; 85025; 87635; 99285